=== PATIENT | male | born 1980 | race Caucasian/White ===

== ENCOUNTER → 2021-09-01 | Outpatient (CLI) | payer OTHER | LOC: EXRD 08:49 | DX: M79.671 Pain in right foot (principal); M25.552 Pain in left hip | CPT/HCPCS: 73502; 73630 ==

== ENCOUNTER → 2021-10-30 | Day surgery (SDC) | payer OTHER ==
[~2021-10-30] MED LIST: MULTI-VITAMIN1 EACH PO
== END | disposition home or self-care (01) ==
LOC: OR 07:56
DX: Z12.11 Encounter for screening for malignant neoplasm of colon (principal); Z80.0 Family history of malignant neoplasm of digestive organs; Z20.822 Contact with and (suspected) exposure to COVID-19; G43.909 Migraine, unspecified, not intractable, without status migrainosus
CPT/HCPCS: J2704; J7120

== ENCOUNTER → 2021-12-25 | Outpatient (CLI) | payer OTHER | LOC: RAD 09:00 | DX: S73.192A Other sprain of left hip, initial encounter (principal); M25.552 Pain in left hip; M25.551 Pain in right hip; X58.XXXA Exposure to other specified factors, initial encounter | CPT/HCPCS: 73722; A9577; Q9967 ==